=== PATIENT | female | born 1960 | race American Indian/Alaskan Native ===

== ENCOUNTER 2018-10-09 06:48 | Emergency (ER) | payer BC ==
[~2018-10-09] VITALS: Ht 162.6 cm; Wt 88.2 kg
[2018-10-09] MEDS ORDERED: VITAMIN D 1001000 IU (07:16)
[2018-10-09] MEDS ORDERED: BIOTIN5000 MCG PO (07:16)
[2018-10-09] MEDS ORDERED: COZAAR100 MG PO (07:17)
[2018-10-09] MEDS ORDERED: PRIL40 PO (07:18)
[2018-10-09] MEDS ORDERED: FERROUSAL325 MG PO (07:18)
[2018-10-09] MEDS ORDERED: NORVASC 5MG5 MG/TAB PO (07:19)
[2018-10-09] MEDS ORDERED: CATAPRES 0.1MG0.1 MG PO ×2 (07:19→07:24)
[2018-10-09] MEDS ORDERED: KHEDEZLA100 MG PO (07:20)
[2018-10-09] MEDS ORDERED: SODIUM CHLORIDE1 GM PO (07:20)
[2018-10-09] MEDS ORDERED: ADDERALL30 MG PO (07:21)
[2018-10-09] MEDS ORDERED: WELLBUTRIN XL300 M1 PO (07:21)
[2018-10-09] MEDS ORDERED: PRIFTIN150 MG PO (07:22)
[2018-10-09] MEDS ORDERED: ABILIFY5 MG PO (07:23)
[2018-10-09] MEDS ORDERED: TRILEPTAL600 MG PO (07:23)
[2018-10-09] MEDS ORDERED: ATIVAN2 MG PO (07:24)
[2018-10-09] MEDS ORDERED: DALMANE30 MG PO (07:24)
[2018-10-09] MEDS ORDERED: FLEXERIL 1010 MG/TAB PO (08:41)
[2018-10-09] MEDS ORDERED: NORCO 325 MG-51 TAB PO (08:41)
[2018-10-09 09:34] VITALS: BP 146/89; PULSE 65; TEMP 97.8
== END 2018-10-09 09:25 | disposition home or self-care (01) ==
LOC: COL.ER 06:48
DX: S70.01XA Contusion of right hip, initial encounter (principal); S39.012A Strain of muscle, fascia and tendon of lower back, initial encounter; R40.2410 Glasgow coma scale score 13-15, unspecified time; I10 Essential (primary) hypertension; W10.9XXA Fall (on) (from) unspecified stairs and steps, initial encounter
CPT/HCPCS: J2270; J2360; J2550